=== PATIENT | male | born 1960 | race Caucasian/White ===

== ENCOUNTER 2020-03-10 16:15 | Inpatient (IN) | payer OTHER ==
[~2020-03-10] VITALS: Ht 167.6 cm; Wt 79.4 kg
[2020-03-10 16:53] VITALS: BP 134/79; BMI 28.3
--- NOTE | 2020-03-10 17:15 | NUR ---
DIRECT ADMIT. PERFORMED ASSESMENT SEE NOTES. PT C/O SOB, O2 SAT 84%, INCREASED O2 VIA NC TO 5L, O2 SAT AT 92% NOW. PROVIDED PT WITH DINNER TRAY. EDUCATED PT ON CL AND NEEDS. BED LOW, CL IN REACH. WILL CONTINUE TO MONITOR.
--- NOTE | 2020-03-10 17:45 | NUR ---
STARTED PIV IN LEFT FOREARM, GOOD RETURN, FLUSHED 10ML, 22 GAUGE CATHETER, TWO ATTEMPTS, PATENT, NO REDNESS OR SWELLING. PT TOLERATED WELL. BED LOW, CL IN REACH.
[2020-03-10 18:12] LABS: BASOPHILS 0.2 % (0-2); EOSINOPHILS 1.5 % (0-7); HEMATOCRIT 41.4 % (42.0-54.0); IMMATURE GRANULOCYTES 0.3 % (0-5); LYMPHOCYTES 7.8 % (15-50); MCH 30.7 pg (26.0-34.0); MCHC 33.8 g/dL (31.0-37.0); MCV 90.8 fL (80.0-100.0); MEAN PLATELET VOLUME 9.9 fL (7.4-10.4); MONOCYTES 3.7 % (2-11); NEUTROPHILS 86.5 % (40-80); PLATELET COUNT 234 10x3/uL (130-400); RBC 4.56 10x6/uL (4.20-6.10); RDW 12.2 % (11.5-14.5); WBC 15.6 10x3/uL (4.8-10.8)
[2020-03-10 18:34] LABS: CALC OSMOLALITY 270 mosm/kg (275-300); CALCIUM 8.4 mg/dL (8.5-10.1); CARBON DIOXIDE 29.7 mmol/L (21.0-32.0); CHLORIDE - SERUM 97 mmol/L (98-107); GLUCOSE 194 mg/dL (74-106); POTASSIUM - SERUM 3.7 mmol/L (3.5-5.1); SODIUM 132 mmol/L (136-145); UREA NITROGEN 15 mg/dL (7-18); eGFR NON AFRICAN AMERICAN 81 mL/min (90-120)
[2020-03-10 18:40] LABS: ALBUMIN 2.4 g/dL (3.4-5.0); ALKALINE PHOSPHATASE 51 U/L (30-120); ALT (SGPT) 82 U/L (10-68); BILIRUBIN - TOTAL 0.64 mg/dL (0.2-1.3); PROTEIN - SERUM 6.5 g/dL (6.4-8.2)
[2020-03-10 20:00] VITALS: BP 101/57
--- NOTE | 2020-03-10 20:00 | NUR ---
PATIENT RESTING IN BED WATCHING TV. NO S/S OF ACUTE DISTRESS. NO C/O AT THIS TIME. PATIENT IS ON 5L OF O2 NASAL CANNULA. PATIENT HAS LEFT FOREARM IV, NORMAL SALINE @ 100 ML/HR. IV IS PATENT WITHOUT REDNESS, SWELLING, OR TENDERNESS. PATIENT IS UP ADLIB TO THE BATHROOM. CALL LIGHT WITHIN REACH. WILL CONTINUE TO MONITOR.
[2020-03-11] VITALS: BP 108/71
--- NOTE | 2020-03-11 03:00 | NUR ---
PATIENT CALLED ME IN HIS ROOM AND SHOWED ME THAT HE WAS "COUGHING UP BLOOD". THE PATIENT DOES HAVE BLOODY MUCUS COMING UP, BUT IT IS NOT JUST BLOOD. I TOLD THE PATIENT TO LET ME KNOW IF IT GETS ANY WORSE AND THAT I WOULD KEEP MONITORING IT. CALL LIGHT WITHIN REACH. WILL CONTINUE TO MONITOR.
--- NOTE | 2020-03-11 03:23 | NUR ---
I have reviewed this patient and I concur with the Shift Assessment completed by the Licensed Practical Nurse today this shift.
[2020-03-11 04:00] VITALS: BP 108/67
[2020-03-11 05:53] LABS: APTT 28.9 SECONDS (22.8-39.4); INR 1.26 (0.85-1.17); PROTIME 15.7 SECONDS (11.6-15.0)
[2020-03-11 05:57] LABS: ALKALINE PHOSPHATASE 49 U/L (30-120); ALT (SGPT) 70 U/L (10-68); BILIRUBIN - TOTAL 0.68 mg/dL (0.2-1.3); CALC OSMOLALITY 263 mosm/kg (275-300); CALCIUM 8.5 mg/dL (8.5-10.1); CARBON DIOXIDE 31.3 mmol/L (21.0-32.0); CHLORIDE - SERUM 95 mmol/L (98-107); GLUCOSE 179 mg/dL (74-106); POTASSIUM - SERUM 3.8 mmol/L (3.5-5.1); PROTEIN - SERUM 6.7 g/dL (6.4-8.2); SODIUM 129 mmol/L (136-145); UREA NITROGEN 14 mg/dL (7-18); eGFR NON AFRICAN AMERICAN 81 mL/min (90-120)
[2020-03-11 06:06] LABS: D-DIMER-QUANTITATIVE 2.94 ug/mLFEU (0.20-0.54)
--- NOTE | 2020-03-11 06:45 | NUR ---
A&O RESTING IN BED WITH EYES OPEN. NO C/O PAIN. NO S/S OF ACUTE DISTRESS NOTED. PRODUCTIVE COUGH WITH RED/BROWN. ON 5L O2, NC. IV TO LEFT FOREARM, NS INFUSING @ 50ML/HR. SITE PATENT WITHOUT REDNESS OR SWELLING. DENIES ANY NEEDS AT THIS TIME. CALL LIGHT IN REACH. WILL CONTINUE TO MONITOR.
[2020-03-11 07:15] LABS: BASOPHILS 0.1 % (0-2); EOSINOPHILS 0.9 % (0-7); HEMATOCRIT 37.6 % (42.0-54.0); HEMOGLOBIN 12.6 g/dL (13.5-17.5); IMMATURE GRANULOCYTES 0.2 % (0-5); LYMPHOCYTES 3.5 % (15-50); MCH 30.5 pg (26.0-34.0); MCHC 33.5 g/dL (31.0-37.0); MEAN PLATELET VOLUME 11.2 fL (7.4-10.4); NEUTROPHILS 94.3 % (40-80); PLATELET COUNT 220 10x3/uL (130-400); RBC 4.13 10x6/uL (4.20-6.10); RDW 12.2 % (11.5-14.5); WBC 14.8 10x3/uL (4.8-10.8)
[2020-03-11 08:00] VITALS: BP 112/73
[2020-03-11 11:54] LABS: BILIRUBIN NEGATIVE (NEGATIVE); KETONE NEGATIVE (NEGATIVE); NITRITE NEGATIVE (NEGATIVE); UROBILINOGEN NORMAL mg/dL (< 2)
[2020-03-11 12:00] VITALS: BP 105/72
[2020-03-11 13:50] VITALS: Ht 167.6 cm; Wt 79.4 kg
[2020-03-11 16:59] VITALS: BP 117/71
--- NOTE | 2020-03-11 17:55 | NUR ---
I have reviewed this patient and I concur with the Shift Assessment completed by the Licensed Practical Nurse today this shift.
--- NOTE | 2020-03-11 20:00 | NUR ---
PATIENT RESTING IN BED WATCHING TV. NO S/S OF ACUTE DISTRESS. PATIENT C/O OF CHEST PAIN TO DAY-SHIFT RIGHT BEFORE SHIFT CHANGE, BUT WHEN ASKED PATIENT SAID THAT IT WAS SUBSIDING. PATIENT IS ON 5L OF O2 NASAL CANNULA. PATIENT HAS LEFT FOREARM, NORMAL SALINE @ 50 ML/HR. IV IS PATENT WTIHOUT REDNESS, SWELLING, OR TENDERNESS. CALL LIGHT WITHIN REACH. WILL CONTINUE TO MONITOR.
[2020-03-11 20:51] LABS: CKMB 0.9 U/L (0.0-3.6); CREATINE KINASE 100 UL (21-232)
[2020-03-11 20:53] LABS: TROPONIN-I < 0.017 ng/mL (0.000-0.060)
[2020-03-11 21:40] VITALS: BP 106/72
[2020-03-12 01:33] VITALS: BP 113/55
[2020-03-12 02:25] LABS: BASOPHILS 0.1 % (0-2); EOSINOPHILS 0.1 % (0-7); HEMATOCRIT 36.5 % (42.0-54.0); HEMOGLOBIN 12.3 g/dL (13.5-17.5); IMMATURE GRANULOCYTES 0.3 % (0-5); LYMPHOCYTES 3.3 % (15-50); MCH 30.4 pg (26.0-34.0); MCHC 33.7 g/dL (31.0-37.0); MCV 90.3 fL (80.0-100.0); MEAN PLATELET VOLUME 10.1 fL (7.4-10.4); NEUTROPHILS 93.2 % (40-80); RBC 4.04 10x6/uL (4.20-6.10); RDW 11.6 % (11.5-14.5); WBC 14.9 10x3/uL (4.8-10.8)
[2020-03-12 02:35] LABS: PLATELET COUNT 301 10x3/uL (130-400)
[2020-03-12 02:49] LABS: ALBUMIN 2.3 g/dL (3.4-5.0); ALKALINE PHOSPHATASE 49 U/L (30-120); ALT (SGPT) 81 U/L (10-68); BILIRUBIN - TOTAL 0.26 mg/dL (0.2-1.3); CALCIUM 8.5 mg/dL (8.5-10.1); CARBON DIOXIDE 32.1 mmol/L (21.0-32.0); CHLORIDE - SERUM 97 mmol/L (98-107); CKMB 2.2 U/L (0.0-3.6); CREATINE KINASE 118 UL (21-232); CREATININE - SERUM 0.8 mg/dL (0.6-1.3); POTASSIUM - SERUM 4.1 mmol/L (3.5-5.1); PROTEIN - SERUM 6.6 g/dL (6.4-8.2); SODIUM 133 mmol/L (136-145); UREA NITROGEN 17 mg/dL (7-18); eGFR NON AFRICAN AMERICAN > 90 mL/min (90-120)
[2020-03-12 02:50] LABS: CALC OSMOLALITY 274 mosm/kg (275-300); GLUCOSE 228 mg/dL (74-106); TROPONIN-I < 0.017 ng/mL (0.000-0.060)
[2020-03-12 05:36] VITALS: BP 116/77
[2020-03-12 08:03] LABS: CKMB 1.1 U/L (0.0-3.6); CREATINE KINASE 79 UL (21-232); TROPONIN-I < 0.017 ng/mL (0.000-0.060)
[2020-03-12 09:21] VITALS: BP 120/71
--- NOTE | 2020-03-12 09:32 | NUR ---
PT ALERT AND ORIENTED UPON ENTERING. ADMINISTERED MORNING MEDICATIONS, NO DIFFICULTIES. DOCOTOR IN ROOM AT THIS TIME. PT DENIES ANY NEEDS. BED IN LOWEST POSITION, BED RAILS X2, CALL LIGHT WITHIN REACH. WILL CONTINUE TO MONITOR.
--- NOTE | 2020-03-12 12:47 | NUR ---
ASSESSED PT BLOOD SUGAR, 256. PT REFUSES TO TAKE INSULIN BECAUSE "MY SUGAR IS HIGH BECAUSE OF THE STEROID SHOTS." RESTING COMFORTABLY IN BED. DENIES ANY NEEDS. BED IN LOWEST POSITION, BED RAILS X2, CALL LIGHT WITHIN REACH. WILL CONTINUE TO MONITOR.
[2020-03-12 14:25] VITALS: BP 127/74
--- NOTE | 2020-03-12 17:11 | NUR ---
PT RESTING COMFORTABLY IN BED. ADMINISTERED MEDICATION, NO DIFFICUTLIES/TOLERATING WELL. SUGAR OF 289, 6 UNITS INSULIN PER SLIDING SCALE. DENIES ANY NEEDS. BED IN LOWEST POSITION, BED RAILS X2, CALL LIGHT WITHIN REACH. WILL CONTINUE TO MONITOR.
[2020-03-12 17:14] VITALS: BP 111/70
--- NOTE | 2020-03-12 18:45 | NUR ---
I have reviewed this patient and I concur with the Shift Assessment completed by the Licensed Practical Nurse today this shift.
--- NOTE | 2020-03-12 19:45 | NUR ---
PATIENT RESTING IN BED WITH NO S/S OF DISTRESS AND DENIES NEEDS AT THIS TIME. BED IN LOWEST POSITION AND CALL LIGHT WITHIN REACH. ENCOURAGED THE PATIENT TO CALL IF HE HAS NEEDS. WILL CONTINUE TO MONITOR.
[2020-03-12 20:33] VITALS: BP 123/63
[2020-03-13 01:05] VITALS: BP 112/73
[2020-03-13 05:11] VITALS: BP 137/74
[2020-03-13 05:55] LABS: BASOPHILS 0.1 % (0-2); EOSINOPHILS 0 % (0-7); HEMOGLOBIN 11.9 g/dL (13.5-17.5); IMMATURE GRANULOCYTES 0.2 % (0-5); LYMPHOCYTES 4.1 % (15-50); MCH 30.5 pg (26.0-34.0); MCV 89.7 fL (80.0-100.0); NEUTROPHILS 93.6 % (40-80); PLATELET COUNT 307 10x3/uL (130-400); RDW 11.8 % (11.5-14.5); WBC 13.8 10x3/uL (4.8-10.8)
[2020-03-13 06:22] LABS: ALBUMIN 1.8 g/dL (3.4-5.0); ALKALINE PHOSPHATASE 39 U/L (30-120); ALT (SGPT) 71 U/L (10-68); BILIRUBIN - TOTAL 0.12 mg/dL (0.2-1.3); CALCIUM 8.3 mg/dL (8.5-10.1); CARBON DIOXIDE 32.2 mmol/L (21.0-32.0); CHLORIDE - SERUM 100 mmol/L (98-107); CREATININE - SERUM 0.8 mg/dL (0.6-1.3); POTASSIUM - SERUM 3.9 mmol/L (3.5-5.1); PROTEIN - SERUM 6.1 g/dL (6.4-8.2); SODIUM 136 mmol/L (136-145); UREA NITROGEN 18 mg/dL (7-18); eGFR NON AFRICAN AMERICAN > 90 mL/min (90-120)
[2020-03-13 06:26] LABS: CALC OSMOLALITY 276 mosm/kg (275-300); GLUCOSE 155 mg/dL (74-106)
[2020-03-13 08:00] VITALS: BP 120/78
--- NOTE | 2020-03-13 09:38 | NUR ---
LAYING IN BED WATCHING TV. NO ACUTE DISTRESS NOTED. BED IN LOWEST POSITION, LOCKED, SIDE RAILS UP X2. CALL LIGHT WITHIN REACH. EXPLAINS HE IS A LITTLE FRUSTRAITED THIS MORNING. HE HAS ASKED THAT WHEN NEW ORDERS ARE PUT IN THAT THE ORDERING PHYSICIAN PLEASE INFORM HIM OF THE NEW ORDERS AND SPEAK WITH HIM PERSONALLY TO AFFORD HIM THE OPPERTUNITY TO ASK QUESTIONS AND BE INVOLVED IN HIS CARE. SOME EXAMPLES HE MENTIONED ARE THE REASON FOR THE BS CHECKS AND CHEST CT. AFTER SPEAKING WITH HIM FOR A FEW MINUTES HE SAID HE WAS FEELING BETTER/CALMER BUT WOULD STILL LIKE TO SPEAK WITH THE PHYSICIANS THEY CONTINUE HIS CARE. HE ALSO MENTIONED A PULMONARY APPOINTMENT HE HAS TOMORROW AT 2PM THAT HAS BEEN SCHEDULED FOR A WHILE AND HE NEEDS TO KEEP IT IF AT ALL POSSIBLE. TO KEEP.
[2020-03-13 12:00] VITALS: BP 116/74
[2020-03-13 16:43] VITALS: BP 116/70
[2020-03-13 20:42] VITALS: BP 112/71
--- NOTE | 2020-03-13 20:58 | NUR ---
ADMINISTERED MEDS PER ORDERS. PATIENT DENIES OTHER NEEDS. WILL CONTINUE TO MONITOR.
[2020-03-14 06:23] VITALS: BP 121/69
[2020-03-14 06:26] LABS: BASOPHILS 0.1 % (0-2); EOSINOPHILS 0 % (0-7); HEMATOCRIT 35.9 % (42.0-54.0); HEMOGLOBIN 12.1 g/dL (13.5-17.5); IMMATURE GRANULOCYTES 0.4 % (0-5); LYMPHOCYTES 5.7 % (15-50); MCH 30.6 pg (26.0-34.0); MCHC 33.7 g/dL (31.0-37.0); MCV 90.9 fL (80.0-100.0); MEAN PLATELET VOLUME 9.4 fL (7.4-10.4); MONOCYTES 4.9 % (2-11); NEUTROPHILS 88.9 % (40-80); PLATELET COUNT 302 10x3/uL (130-400); RBC 3.95 10x6/uL (4.20-6.10); RDW 11.9 % (11.5-14.5); WBC 13.6 10x3/uL (4.8-10.8)
[2020-03-14 07:07] LABS: ALBUMIN 1.9 g/dL (3.4-5.0); ALKALINE PHOSPHATASE 38 U/L (30-120); ALT (SGPT) 61 U/L (10-68); BILIRUBIN - TOTAL 0.09 mg/dL (0.2-1.3); CALC OSMOLALITY 282 mosm/kg (275-300); CALCIUM 8.5 mg/dL (8.5-10.1); CARBON DIOXIDE 30.9 mmol/L (21.0-32.0); CHLORIDE - SERUM 103 mmol/L (98-107); CREATININE - SERUM 0.8 mg/dL (0.6-1.3); GLUCOSE 186 mg/dL (74-106); POTASSIUM - SERUM 4.1 mmol/L (3.5-5.1); PROTEIN - SERUM 5.9 g/dL (6.4-8.2); SODIUM 137 mmol/L (136-145); eGFR NON AFRICAN AMERICAN > 90 mL/min (90-120)
[2020-03-14 07:15] LABS: UREA NITROGEN 23 mg/dL (7-18)
[2020-03-14 08:00] VITALS: BP 131/83
[2020-03-14] MEDS ORDERED: PROTONIX40 MG PO (11:47)
[2020-03-14] MEDS ORDERED: IPRAT-ALBUT 0.5-3 ML UPD (11:47)
[2020-03-14] MEDS ORDERED: PERFOROMIS20 MCG/21 INH (11:47)
[2020-03-14] MEDS ORDERED: ZITHROMAX500 MG PO (11:47)
[2020-03-14] MEDS ORDERED: ATROVENT 0.02%2.5 ML UPD (11:47)
[2020-03-14] MEDS ORDERED: OMNICEF300 MG PO (11:47)
[2020-03-14] MEDS ORDERED: MUCINEX600 MG PO (11:47)
[2020-03-14] MEDS ORDERED: MUCINEX DM ER1 EAC1 PO (11:47)
[2020-03-14] MEDS ORDERED: PREDNISONE10 MG PO (11:47)
[2020-03-14] MEDS ORDERED: FEXOFENADINE H180 MG PO (11:47)
[2020-03-14] MEDS ORDERED: TESSALON PERLE100 MG PO (11:47)
--- NOTE | 2020-03-14 14:57 | MORECARE ---
CASE MANAGEMENT DISCHARGE SUMMARY PATIENT: STEPHANIE CASTANO UNIT: [id number] ADM DATE: 03/10/20 AGE: 59 : 60 SEX: M ROOM/BED: D.2236 AUTHOR: AMEYA,DOC PHYSICIAN: REFERRING PHYSICIAN: YVETTE FLYNN MD DATE OF SERVICE: 03/14/20 Discharge Plan Patient Name: STEPHANIE CASTANO Facility: [facility]:[place] : 1960 Planned Disposition: Anticipated Discharge Date: Discharge Date: Expected LOS: Initial Reviewer: [email or web address] Initial Review Date: 03/10/2020 Generated: 03/14/20 3:57 pm Comments DCP- Discharge Planning Updated by [id number]: Ann Robbins on 03/14/20 1:[address] Patient Name: STEPHANIE CASTANO Admission Status: Elective Accout number: [id number] Admission Date: 03-10-2020 : 1960 Admission Diagnosis: Attending: GURWINDER Current LOS: 4 Anticipated DC Date: Planned Disposition: Primary Insurance: [employer] INS EXCHANGE Discharge Planning Comments: CM met with patient at bedside after explaining CM role and obtaining verbal consent. CM discussed availability / needs of home health, REHAB and medical equipment. PATIENT HAS O2 WITH [employer]. I SENT INFORMATION WITH [facility] TO SEE IF THEY CAN GET PATIENT A PORTABLE CONSENTRATOR. [facility] WILL CONTACT PATIENT WITH UPDATE. PATIENT WOULD ALSO LIKE , JACKIE SIGNED FOR CARE 4 . CM TO FOLLOW NEEDED, Piano And Organ Refinisher: Ann Robbins DCPIA - Discharge Planning Initial Assessment Updated by [id number]: Ann Robbins on 03/14/20 2:55 pm * Is the patient Alert and Oriented? Yes * PCP [place] * Preadmission Environment Home with Family * ADLs Independent * Other Equipment 02, PORTABLE, CANE * List name and contact numbers for known caregivers / representatives who currently or will assist patient after discharge: REGINA, * Additional services required to return to the preadmission environment? No * Can the patient safely return to the preadmission environment? Yes * Has this patient been hospitalized within the prior 30 days at any hospital? No External Providers External Provider: [facility] Next Contact Date: Service Request Date: Service Type: Resolution: Reviewer: Comments: Patient Name: STEPHANIE CASTANO Page [id number] at 1457 All edits/amendments must be made on the electronic document DICTATION DATE: 03/14/201456 PRESS OPERATOR: ARCHIE 03/14/201456 RPT#: [id number] [place] DATE: STATUS: ADM IN [facility] [address] [place] [address] END OF REPORT
--- NOTE | 2020-03-14 16:14 | NUR ---
REVIEWED DISCHARGE INFORMATION AND EDUCATION WITH PATIENT AND . RECEIVED INFORMATION WELL. NO ACUTE DISTRESS NOTED. REMOVED PIV, FULLY INTACT, TOLERATED WELL. TRANSPORTED TO FRONT DOOR VIA WC. TOLERATED WELL. DROVE HOME IN PERSONAL VEHICLE
--- NOTE | 2020-03-15 09:00 | MORECARE ---
CASE MANAGEMENT DISCHARGE SUMMARY PATIENT: STEPHANIE CASTANO UNIT: [id number] ADM DATE: 03/10/20 AGE: 59 : 60 SEX: M ROOM/BED: D.2236 AUTHOR: AMEYA,DOC PHYSICIAN: REFERRING PHYSICIAN: YVETTE FLYNN MD DATE OF SERVICE: 03/15/20 Discharge Plan Patient Name: STEPHANIE CASTANO Facility: [facility]:[place] : 1960 Planned Disposition: Anticipated Discharge Date: Discharge Date: 03/14/2020 Expected LOS: Initial Reviewer: [email or web address] Initial Review Date: 03/10/2020 Generated: 03/15/20 9:59 am Comments DCP- Discharge Planning Updated by [id number]: Ann Robbins on 03/14/20 1:[address] Patient Name: SETPHANIE CASTANO Admission Status: Elective Accout number: [id number] Admission Date: 03-10-2020 : 1960 Admission Diagnosis: Attending: GURWINDER Current LOS: 4 Anticipated DC Date: Planned Disposition: Primary Insurance: [employer] INS EXCHANGE Discharge Planning Comments: CM met with patient at bedside after explaining CM role and obtaining verbal consent. CM discussed availability / needs of home health, REHAB and medical equipment. PATIENT HAS O2 WITH [place]. I SENT INFORMATION WITH [facility] TO SEE IF THEY CAN GET PATIENT A PORTABLE CONSENTRATOR. [facility] WILL CONTACT PATIENT WITH UPDATE. PATIENT WOULD ALSO LIKE , JACKIE SIGNED FOR CARE 4 . CM TO FOLLOW NEEDED, Intake Coordinator: Ann Robbins DCPIA - Discharge Planning Initial Assessment Updated by [id number]: Ann Robbins on 03/14/20 2:55 pm * Is the patient Alert and Oriented? Yes * PCP [place] * Preadmission Environment Home with Family * ADLs Independent * Other Equipment 02, PORTABLE, CANE * List name and contact numbers for known caregivers / representatives who currently or will assist patient after discharge: REGINA [phone] * Additional services required to return to the preadmission environment? No * Can the patient safely return to the preadmission environment? Yes * Has this patient been hospitalized within the prior 30 days at any hospital? No Coverage Notice Reviewer: [email or web address] Madeleine Robbins Notice Issued Date-Time: 03/14/2020 14:57 Notice Type: Patient Choice Letter Notice Delivered To: Patient Relationship to Patient: Processing [employer] Supervisor Name: Delivery Method: HAND - Hand Delivered Mell Days: Prior Verbal Notification: Recipient Understood Notice: Yes Recipient Signature: Yes Med Rec Note Co-signed by Attending: Coverage Notice Comment: CARE 4 HH Last DP export: 03/14/20 1:57 Patient Name: STEPHANIE CASTANO Page [phone] at 0900 All edits/amendments must be made on the electronic document DICTATION DATE: 03/15/20899 CORPORATE INVESTIGATOR: ARCHIE 03/15/20899 RPT#: [id number] DC DATE:03/14/20 STATUS: DIS IN [facility] [address] [place] [address] END OF REPORT
== END 2020-03-14 16:22 | disposition home or self-care (01) | DRG 193 ==
LOC: D.MS 16:15
PROVIDERS: Family Medicine; ADMIT Family Medicine; ATTEND Family Medicine
DX: J18.9 Pneumonia, unspecified organism (principal); J96.21 Acute and chronic respiratory failure with hypoxia; J43.9 Emphysema, unspecified; K21.9 Gastro-esophageal reflux disease without esophagitis; K22.70 Barrett's esophagus without dysplasia; G89.29 Other chronic pain; F17.200 Nicotine dependence, unspecified, uncomplicated; D64.9 Anemia, unspecified